=== PATIENT | female | born 2000 | race Caucasian/White ===

== ENCOUNTER 2025-10-07 23:48 | Emergency (ER) | payer OTHER ==
[~2025-10-07] VITALS: Ht 154.9 cm; Wt 60.7 kg
[2025-10-07 23:50] VITALS: O2SAT 100
[2025-10-08] MEDS ORDERED: IBUP-1455 MT (00:18)
[2025-10-08] MEDS ORDERED: HYDR-459 MT (00:18)
[2025-10-08 00:51] VITALS: BP 98/59; PULSE 63; RESP 14; TEMP 36.5; O2SAT 100
== END 2025-10-08 00:56 | disposition home or self-care (01) ==
LOC: ER 10-08 00:38
DX: R07.89 Other chest pain (principal); R00.2 Palpitations; F41.9 Anxiety disorder, unspecified; Z98.890 Other specified postprocedural states
CPT/HCPCS: 71045; 93005; 99283